=== PATIENT | female | born 1970 | race Caucasian/White ===

== ENCOUNTER 2022-08-23 10:05 | Day surgery (SDC) | payer MEDICAID ==
[2022-08-21 13:13] LABS: BASOPHILS # (AUTO) 0.1 X10'3 (0-0.2); BASOPHILS % (AUTO) 0.6 % (0-1); EOSINOPHILS # (AUTO) 0.2 X10'3 (0-0.9); EOSINOPHILS % (AUTO) 1.8 % (0-6); HEMOGLOBIN 14.8 g/dl (12.0-16.0); LYMPHOCYTES # (AUTO) 1.7 X10'3 (1.1-4.8); LYMPHOCYTES % (AUTO) 20.1 % (21-51); MEAN CORPUSCULAR HEMOGLOBIN 32.3 PG (27.0-31.0); MEAN CORPUSCULAR HGB CONC 34.4 g/dL (33.0-36.5); MEAN CORPUSCULAR VOLUME 94.1 FL (78-98); MEAN PLATELET VOLUME 7.7 FL (7.4-10.4); MONOCYTES # (AUTO) 0.6 X10'3 (0-0.9); NEUTROPHILS # (AUTO) 6.1 X10'3 (1.8-7.7); NEUTROPHILS % (AUTO) 70.5 % (42-75); PLATELET COUNT 216 X10'3 (140-440); RED BLOOD COUNT 4.57 X10'6 (4.20-5.60); RED CELL DISTRIBUTION WIDTH 13.3 % (11.5-14.5); WHITE BLOOD COUNT 8.7 X10'3 (4.5-11.0)
[2022-08-21 13:27] LABS: APTT 30 SECONDS (22-32)
[2022-08-21 13:31] LABS: ALANINE AMINOTRANSFERASE 45 U/L (12-78); ALBUMIN 3.8 G/DL (3.4-5.0); ALBUMIN/GLOBULIN RATIO 0.9 (1.1-1.5); ALKALINE PHOSPHATASE 101 IU/L (46-116); ANION GAP 9 (8-16); ASPARTATE AMINO TRANSFERASE 33 U/L (10-37); BILIRUBIN,TOTAL 0.7 MG/DL (0.1-1.0); BLOOD UREA NITROGEN 15 MG/DL (7-18); BUN/CREATININE RATIO 17.4 (6.6-38.0); CALCIUM 9.8 MG/DL (8.5-10.1); CHLORIDE 104 MMOL/L (99-107); CREATININE 0.86 MG/DL (0.40-0.90); GLUCOSE 100 MG/DL (70-104); POTASSIUM 3.7 MMOL/L (3.5-5.1); SODIUM 137 MMOL/L (135-145); TOTAL CARBON DIOXIDE 24.1 MMOL/L (24-32); TOTAL PROTEIN 8.2 G/DL (6.4-8.2); eGFR 69 ML/MIN
[~2022-08-23] VITALS: Ht 170.2 cm; Wt 119.3 kg
[2022-08-23] VITALS (10 sets, daily range): BP systolic 123–156; BP diastolic 66–97
[2022-08-23] MEDS ORDERED: normal saline 1,000 ML IV SCH (10:20)
[2022-08-23] MEDS ORDERED: diphenhydrAMINE 25mg capsule PO PRN (10:20)
[2022-08-23] MEDS ORDERED: nitroGLYCERIN 0.4mg SUBLingual tab SL PRN (10:20)
[2022-08-23] MEDS ORDERED: LORazepam 0.5 MG tablet PO PRN (10:20)
[2022-08-23] MEDS ORDERED: IBUP-1984 PO (10:35)
[2022-08-23] MEDS ORDERED: LISI30TA4 PO (10:35)
[2022-08-23] MEDS ORDERED: HYDR12.55 PO (10:35)
[2022-08-23] MEDS ORDERED: LIDOcaine 1% 30ml preserv. free vial ONE (11:47)
[2022-08-23] MEDS ORDERED: iohexol 350MG/ML 100ml bottle IV ONE (11:47)
[2022-08-23] MEDS ORDERED: midazolam 1 mg/ML 2ml injection ONE ×2 (11:47→12:35)
[2022-08-23] MEDS ORDERED: iohexol 350 MG/ML 50ML vial IV ONE (11:47)
[2022-08-23] MEDS ORDERED: fentaNYL/PF 50MCG/1 ML 2ML syringe ONE (11:47)
[2022-08-23] MEDS ORDERED: HYDROmorphone 1 mg/ml syringe ONE ×2 (12:14→12:32)
[2022-08-23] MEDS ORDERED: proCHLORperazine 10 MG/2 ml inj IV PRN (13:30)
[2022-08-23] MEDS ORDERED: ondansetron/PF 4mg/2ml inj IV PRN (13:30)
[2022-08-23] MEDS ORDERED: HYDROcodone/acetaminophen 5mg/325mg tablet PO PRN (13:30)
[2022-08-23] MEDS ORDERED: OXAZEpam 15mg capsule PO PRN (13:30)
[2022-08-23] MEDS ORDERED: HYDROcodone/acetaminophen 10/325mg tab PO PRN (13:30)
[2022-08-23] MEDS ORDERED: HYDROmorphone 1 mg/ml syringe IV ONE (14:10)
== END 2022-08-23 18:25 | disposition home or self-care (01) ==
LOC: SSTAY O 10:05
PROVIDERS: ATTEND Internal Medicine Cardiovascular Disease
DX: R94.39 Abnormal result of other cardiovascular function study (principal); I25.2 Old myocardial infarction; I42.9 Cardiomyopathy, unspecified; I10 Essential (primary) hypertension; E78.5 Hyperlipidemia, unspecified; M19.90 Unspecified osteoarthritis, unspecified site; G47.33 Obstructive sleep apnea (adult) (pediatric); Z79.899 Other long term (current) drug therapy; Z87.891 Personal history of nicotine dependence; Z96.651 Presence of right artificial knee joint; Z79.01 Long term (current) use of anticoagulants; Z80.0 Family history of malignant neoplasm of digestive organs
CPT/HCPCS: 36415; 71046; 80053; 85025; 85610; 85730; 93005; 93458; 99152; 99153; C1760; C1769; J1170; J1644; J2250; J3010; J3490; J7030; Q0163; Q9967; A6258